=== PATIENT | female | born 2000 | race Caucasian/White ===

== ENCOUNTER 2022-04-06 19:11 | Emergency (ER) | payer SELFPAY ==
[~2022-04-06] VITALS: Ht 160 cm; Wt 59.0 kg
[2022-04-06 19:20] VITALS: BP 116/69
--- NOTE | 2022-04-06 19:23 | NUR ---
TO LOBBY A/W BED AMBULATORY
--- NOTE | 2022-04-06 20:26 | NUR ---
Patient being evaluated by physician at bedside.
[2022-04-06] MEDS ORDERED: LIDOCAINE MPF 1% 10 MG/ML VIAL EPI ONE (20:30)
[2022-04-06] MEDS ORDERED: LIDOCAINE/EPI MPF 1%1:200000 30 ML VIAL INJ ONE (20:30)
[2022-04-06] MEDS ORDERED: CLIN300C2 PO (21:05)
[2022-04-06] MEDS ORDERED: DEXAMETHASONE 10 MG/ML VIAL IM ONE (21:05)
[2022-04-06] MEDS ORDERED: CLINDAMYCIN 150 MG CAP PO ONE (21:05)
--- NOTE | 2022-04-06 21:39 | NUR ---
pt reports passing out after injection shot. pt attached to monitor prior to passing out- no changes noted in VS except for mild hypotension of 100/57. ER MD made aware. per ER MD will monitor pt for another 20minutes and then re-evaluate.
[2022-04-06 22:07] VITALS: BP 104/62
--- NOTE | 2022-04-06 22:07 | NUR ---
Patient discharged with V/S WNL. Written and verbal after care instructions given and explained about peritonsillar abscess and peritonsillar cellulitis. Patient alert, oriented and verbalized understanding of instructions. Ambulatory with steady gait. All questions addressed prior to discharge. ID band removed. Patient advised to follow up with PMD. Rx of Cleocin HCL given. Patient educated on indication of medication including possible reaction and side effects. Opportunity to ask questions provided and answered.
== END 2022-04-06 22:07 | disposition home or self-care (01) ==
LOC: MED 19:11
DX: J36 Peritonsillar abscess (principal)
CPT/HCPCS: 96372; 99283; J1100; J2001